=== PATIENT | female | born 1995 | race Caucasian/White ===

== ENCOUNTER 2019-09-13 03:05 | Emergency (ER) | payer OTHER, BC ==
[2019-09-13 05:33] VITALS: TEMP 97.2
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
[2019-09-13] MEDS ORDERED: PLAN B ONE-STE1.5 MG PO (11:31)
[2019-09-13 12:04] VITALS: BP 110/69; PULSE 86
== END 2019-09-13 12:04 | disposition home or self-care (01) ==
LOC: COL.ER 03:05
PROVIDERS: Emergency Medicine
DX: F10.129 Alcohol abuse with intoxication, unspecified (principal); T76.21XA Adult sexual abuse, suspected, initial encounter; F43.10 Post-traumatic stress disorder, unspecified; F17.210 Nicotine dependence, cigarettes, uncomplicated; Y90.6 Blood alcohol level of 120-199 mg/100 ml
CPT/HCPCS: J0696; J1200; J2060; J2405; J2765; J7030

== ENCOUNTER 2020-01-10 12:23 | Emergency (ER) | payer OTHER, BC ==
[~2020-01-10] VITALS: Ht 167.6 cm; Wt 75.0 kg
[~2020-01-10 12:23] MED LIST: PLAN B ONE-STE1.5 MG PO
[2020-01-10 12:26] VITALS: TEMP 97.2
[2020-01-10] MEDS ORDERED: EFFEXOR 3737.5 MG/TA PO (12:34)
[2020-01-10] MEDS ORDERED: NORCO 325 MG-51 TAB PO (14:22)
[2020-01-10 15:15] VITALS: BP 116/84; PULSE 83
== END 2020-01-10 15:15 | disposition home or self-care (01) ==
LOC: COL.ER 12:23
DX: S20.212A Contusion of left front wall of thorax, initial encounter (principal); W01.198A Fall on same level from slipping, tripping and stumbling with subsequent striking against other object, initial encounter

== ENCOUNTER 2020-12-30 23:26 | Emergency (ER) | payer BC ==
[~2020-12-30] VITALS: Ht 167.6 cm; Wt 79.5 kg
[~2020-12-30 23:26] MED LIST changes: +EFFEXOR 3737.5 MG/TA PO; +NORCO 325 MG-51 TAB PO
[2020-12-30 23:29] VITALS: TEMP 99.1
[2020-12-30 23:52] LABS: BASO # 0.1 (0.0-0.2); BASO % 0.6 % (0.0-2.0); EOS # 0.1 (0.0-0.7); EOS % 0.5 % (0-4.0); GRAN # 5.8 (1.4-6.5); GRAN % 61.6 % (42.2-75.2); HEMATOCRIT 39.1 % (37.0-47.0); LYMPH # 2.7 (1.2-3.4); LYMPH % 28.5 % (20.0-51.0); MEAN CELL VOLUME 80 fl (80.0-100.0); MEAN CORPUSCULAR HEMOGLOBIN 27 pg (27.0-31.0); MEAN CORPUSCULAR HGB CONC 33 g/dl (33.0-37.0); MEAN PLATELET VOLUME 9.4 fl (7.4-10.4); MONO # 0.8 (0.1-0.6); MONO % 8.5 % (1.7-9.3); PLATELET COUNT 355 K/mm3 (130-400); RED BLOOD COUNT 4.89 M/mm3 (4.10-5.30); REDCELL DISTRIBUTION WIDTH-CV 13.3 % (11.5-14.5)
[2020-12-31 00:04] LABS: ALBUMIN 4.8 gm/dL (3.5-5.0); BILIRUBIN,TOTAL 0.3 mg/dL (0.0-1.0); CALCIUM 9.4 mg/dL (8.4-10.2); CREATININE, serum 0.79 (0.52-1.25); POTASSIUM 3.3 mmol/L (3.4-5.0); TOTAL PROTEIN 8.2 gm/dL (6.4-8.2)
[2020-12-31 00:22] LABS: COLLECTION METHOD CLEAN CATCH
[2020-12-31 00:35] LABS: PH 5 (5-8); SQUAMOUS EPITHELIAL 0-2 /hpf; URINE APPEARANCE Clear; URINE BACTERIA Rare /hpf; URINE BILIRUBIN Negative (NEGATIVE); URINE BLOOD Negative (NEGATIVE); URINE COLOR Straw; URINE GLUCOSE Negative (NEGATIVE); URINE KETONE Negative (NEGATIVE); URINE LEUKOCYTE ESTERASE Negative (NEGATIVE); URINE NITRATE Negative (NEGATIVE); URINE PROTEIN(semi-quant) Negative (NEGATIVE); URINE RBC 0-2 /hpf; URINE UROBILINOGEN Negative (NEGATIVE)
[2020-12-31 00:41] LABS: TRICYCLIC ANTIDEPRESS URINE NEGATIVE
[2020-12-31 01:33] VITALS: BP 142/70; PULSE 78
== END 2020-12-31 01:33 | disposition home or self-care (01) ==
LOC: COL.ER 23:26
PROVIDERS: Emergency Medicine
DX: S09.90XA Unspecified injury of head, initial encounter (principal); S16.1XXA Strain of muscle, fascia and tendon at neck level, initial encounter; S09.93XA Unspecified injury of face, initial encounter; F43.10 Post-traumatic stress disorder, unspecified; R68.84 Jaw pain; H92.02 Otalgia, left ear; R40.2410 Glasgow coma scale score 13-15, unspecified time; F17.290 Nicotine dependence, other tobacco product, uncomplicated; V29.9XXA Motorcycle rider (driver) (passenger) injured in unspecified traffic accident, initial encounter
CPT/HCPCS: J2060

== ENCOUNTER → 2020-12-31 | Outpatient (REF) ==
[~2020-12-31] MED LIST changes: +FLEXERIL 1010 MG/TAB PO; +ILOTYCIN5 MG/GM OP
== END ==
LOC: COL.LAB 01:13
DX: Z01.89 Encounter for other specified special examinations (principal)

== ENCOUNTER 2021-03-03 21:53 | Emergency (ER) | payer OTHER, BC ==
[~2021-03-03] VITALS: Ht 167.6 cm; Wt 79.5 kg
[~2021-03-03 21:53] MED LIST changes: -FLEXERIL 1010 MG/TAB PO; -ILOTYCIN5 MG/GM OP
[2021-03-03 21:54] VITALS: TEMP 99.2
[2021-03-03] MEDS ORDERED: FLEXERIL 1010 MG/TAB PO (23:55)
[2021-03-03] MEDS ORDERED: ILOTYCIN5 MG/GM OP (23:55)
[2021-03-04] VITALS: BP 120/65; PULSE 80
== END 2021-03-04 00:04 | disposition home or self-care (01) ==
LOC: COL.ER 21:53
DX: S09.93XA Unspecified injury of face, initial encounter (principal); H57.12 Ocular pain, left eye; M54.6 Pain in thoracic spine; V40.5XXA Car driver injured in collision with pedestrian or animal in traffic accident, initial encounter